=== PATIENT | female | born 1975 | race Caucasian/White ===

== ENCOUNTER 2019-07-07 10:26 | Emergency (ER) | payer OTHER ==
[~2019-07-07] VITALS: Ht 180.3 cm; Wt 68.0 kg
[2019-07-07] MEDS ORDERED: DIAZEPAM10 MG PO (10:39)
[2019-07-07] MEDS ORDERED: OXYCODONE HCL10 M1 PO (10:39)
[2019-07-07] MEDS ORDERED: GABAPENTIN800 M1 PO (10:40)
[2019-07-07] MEDS ORDERED: ZANAFLEX4 MG PO (10:40)
== END 2019-07-08 14:41 | disposition home or self-care (01) ==
LOC: EDBD 10:26 → ER 10:26
DX: U07.1 COVID-19 (principal); R53.81 Other malaise; M54.89 Other dorsalgia; N39.0 Urinary tract infection, site not specified; Z71.89 Other specified counseling